=== PATIENT | female | born 1990 | race Caucasian/White ===

== ENCOUNTER → 2018-09-17 | Outpatient (CLI) | payer OTHER ==
[2016-10-16 09:30] VITALS: BP 130/89
[~2018-09-17] MED LIST: ESCITALOPRAM OX10 MG PO; IBUP-1060 PO; PNV1TABL25 PO
--- NOTE | 2018-09-17 13:42 | RAD ---
EXAM: Chest, 2 views. HISTORY: Cough. COMPARISON: None. FINDINGS: 2 views of chest are obtained. There is no infiltrate, pleural effusion or pneumothorax. The heart is normal in size. IMPRESSION: No acute pulmonary finding. Electronically signed by: Raquel Knapp MD (09/17/2018 1:38 PM) [id number]
== END | disposition home or self-care (01) ==
LOC: RAD 11:37
PROVIDERS: ATTEND Family Medicine
DX: J22 Unspecified acute lower respiratory infection (principal)
CPT/HCPCS: 71046

== ENCOUNTER → 2019-02-06 | Outpatient (CLI) | payer OTHER ==
[2016-10-16 09:30] VITALS: BP 130/89
--- NOTE | 2019-02-06 16:09 | RAD ---
Obstetrical ultrasound, 02/06/2019: HISTORY: Uterine size/date discrepancy There is a single intrauterine fetus in a cephalic orientation. The biparietal diameter measures 4.3 cm compatible with a gestational age of 19 weeks. This corresponds well to the other measurements and yields a sonographic EDC of 07/04/2019. Normal activity and heart motion were seen. A four-chamber heart is evident with a heart rate of 157 bpm. Fluid is identified in the bladder and stomach. The visualized portions of the kidneys and spine are unremarkable. A three-vessel umbilical cord is identified with a normal cord insertion site. A normal amount of amniotic fluid is evident with the CHRISTOFER calculated at 9.6. The placenta lies anteriorly with no evidence of a placenta previa. The cervical length is 4.4 cm. The maternal ovaries were not visualized. IMPRESSION: Single viable intrauterine fetus of approximately 19 weeks gestational age as described above. Electronically signed by: Newton Simpson MD (02/06/2019 4:06 PM) [facility]
== END | disposition home or self-care (01) ==
LOC: US 12:00
PROVIDERS: ATTEND Obstetrics & Gynecology
DX: O26.842 Uterine size-date discrepancy, second trimester (principal); Z3A.19 19 weeks gestation of pregnancy
CPT/HCPCS: 76805